=== PATIENT | male | born 1960 | race Caucasian/White ===

== ENCOUNTER 2017-01-11 04:55 | Inpatient (IN) | payer SELFPAY ==
[2017-01-11] VITALS (9 sets, daily range): BP systolic 114–190; BP diastolic 54–85
[~2017-01-11] VITALS: Ht 170.2 cm; Wt 96.6 kg
--- NOTE | ~2017-01-11 | PR ---
[place], [place] PROGRESS NOTE NAME: BELA JENSEN [facility] #: [id number] UNIT #: [id number] ROOM: 428 DOCTOR: BRUCE JOSEPH MD BIRTHDATE: [birth year] DOS: 01/12/2017 CARDIOLOGY PROGRESS NOTE SUBJECTIVE: The patient was seen at his bedside on January 12, 2017, for followup of his chest pain. He is a 57-year-old man with a history of an apparent nonischemic cardiomyopathy. He had a cardiac event in 1994 that resulted in placement of an ICD. He states that he did have a cardiac catheterization at that time, but was found to have no blockages. His ICD has been changed on several occasions and in March 2016, the device became infected. The generator and all of its wires were removed and he was treated with intravenous antibiotics. Since then, his status has been stable and he has not had any syncopal episodes. He was admitted to the [facility] in early August 2016 with atypical chest pain. He ruled out for myocardial infarction. A pharmacologic myocardial perfusion study showed normal left ventricular perfusion with an ejection fraction that was also normal. He has been managed medically since then. Since he has been in the hospital on this occasion, his pains have resolved. They were very atypical in their location and presentation. There was no associated acute ST change or elevation in cardiac biomarkers. PHYSICAL EXAMINATION: GENERAL: The patient is overweight white male who is awake, alert and oriented. VITAL SIGNS: Pulse is 60 and regular, blood pressure 133/74. He weighed 96.6 kilograms with a body mass index of 33.4. HEENT: Normocephalic, atraumatic. Extraocular muscles are intact. Sclerae are clear. Pupils are equal, round and react to light. The oral mucosa is moist. Tongue is midline. NECK: Supple. He has no jugular distention. Carotids are full. I heard no bruits. LUNGS: Respirations are unlabored. His chest is clear to auscultation and percussion. He has no presacral edema or chest wall tenderness. HEART: Has a regular rhythm. He has a fourth heart sound, but no third heart sound or murmur. ABDOMEN: Obese, but otherwise benign. EXTREMITIES: Showed no edema. IMPRESSION: 1. Atypical right-sided chest pain, which appears to be due to muscle tension. 2. History of dilated nonischemic cardiomyopathy. 3. Pharmacologic stress test on August 29, 2016, at [facility] showed no evidence for ischemia and normal left ventricular systolic function. 4. History of cigarette abuse. The patient stopped smoking 6 months ago. PLAN: We will review his echocardiogram when it is available. Assuming no surprises, he could be discharged after that. I thank the hospitalist group for asking our advice regarding his care. [place], [place] PROGRESS NOTE NAME: BELA JENSEN UNIT #: [id number] ROOM: [facility] DOCTOR: BRUCE JOSEPH MD BIRTHDATE: [birth year] BRUCE JOSEPH MD CM:PNTRANS [id number] BRUCE JOSEPH MD 01/13/17240 interface
--- NOTE | ~2017-01-11 | CON ---
[place], [place] REPORT OF CONSULTATION NAME: BELA JENSEN UNIT #: [id number] ROOM: 428 DOCTOR: BRUCE JOSEPH MD BIRTHDATE: [birth year] DOS: 01/11/2017 CARDIOLOGY CONSULTATION The patient was seen. REASON FOR CONSULTATION: Atypical chest pain. HISTORY OF PRESENT ILLNESS: The patient is a 57-year-old man who reportedly does have a history of a dilated nonischemic cardiomyopathy. All of his medical care was through the [facility] and Dr. Theron Matos. The patient states that in 1994, he did have a cardiac event, but cannot tell me much about it. He stated that he had a heart catheterization and was told that he had "small pulses." He did not require surgery for bypass or angioplasty, but an ICD was placed in 1994. The generator has been changed on a few occasions since then. 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 He states that the generator and all wires were removed and he was treated with intravenous antibiotics for quite some time. He states that they did place an implantable monitor, but he has not had any problems and in fact he was told that his heart strength had improved to normal. The patient states that a few months ago, he did have chest pain. Dr. Matos supervised a stress test. A Lexiscan study was done. I do not have the final report, but the patient was told that everything looked fine. He denies having any arrhythmias or syncopal episodes. The patient has had episodes of chest pain including the one that prompted his stress test in August. He states these are typically brought on by stress. Recently, he has been living with a friend here in [place]. His friend and his friend's got into an argument and this upset him greatly. He started having tightness and pain in the right side of his chest that would not go away on its own and therefore, he came to the Emergency Room for evaluation. His initial echocardiogram does show lateral T-wave inversions consistent with ischemia; however, serial cardiac enzymes have all been normal. PAST MEDICAL HISTORY: Includes, 1. Hypertension. 2. Cardiac event 1994, details not available. The patient states he had a heart catheterization and there were no blockages. He did not have a stent or bypass. 3. No history of diabetes or stroke. 4. History of cigarette abuse. The patient has been abstinent for the last 6 months. MEDICATIONS: Prior to admission, acetaminophen p.r.n., Tegretol 200 mg t.i.d., gabapentin 300 mg b.i.d., Keppra 1000 mg b.i.d., omeprazole 20 mg daily, potassium 20 mEq b.i.d., Topamax 50 mg b.i.d., and trazodone 150 mg h.s. ALLERGIES: The patient states he has no known drug allergies. [place], [place] REPORT OF CONSULTATION NAME: BELA JENSEN UNIT #: [id number] ROOM: 428 DOCTOR: BRUCE JOSEPH MD BIRTHDATE: [birth year] REVIEW OF SYSTEMS: The patient denies diplopia or loss of vision. He denies lightheadedness or syncope. He denies fevers, chills, sweats or recent weight change. He denies orthopnea or PND. He denies palpitations or lightheadedness. He denies nausea or vomiting. He denies hemoptysis or hematemesis. He denies change in his stools and denies bleeding from any site. He denies any recent fevers, polydipsia, polyuria or heat or cold intolerance. He denies any peripheral edema. The remainder of the review of systems is negative except as noted above. FAMILY HISTORY: Negative for early coronary artery disease. SOCIAL HISTORY: The patient lives alone. Currently, he is living with friends. He was a smoker, but quit 6 months ago. He almost never consumes any alcohol. PHYSICAL EXAMINATION: GENERAL: He is a well-nourished white male who is awake, alert and oriented. VITAL SIGNS: Pulse is 80 and regular, blood pressure is 128/78. He weighs 96.6 kg and has a body mass index of 33.4. HEENT: Normocephalic, atraumatic. Extraocular muscles are intact. Sclerae are clear. Pupils are equal, round and reactive to light. The oral mucosa is moist. Tongue is midline. NECK: Supple. He has no jugular distention. Carotids are full. I heard no bruits. He had no neck or supraclavicular masses. No thyromegaly. LUNGS: Respirations are unlabored. His chest is clear to auscultation and percussion. He had no presacral edema. I could not reproduce his pain by palpation of his chest, although he stated that his right chest was slightly sore. CARDIOVASCULAR: His heart had a regular rhythm without murmurs or rubs. He has a soft S4 gallop, but no S3. The PMI is not displaced. There is no precordial heave, lift or thrill. ABDOMEN: Soft and normally active without masses, organomegaly or bruits. EXTREMITIES: Showed no edema. Peripheral pulses are easily palpated in the feet bilaterally. LABORATORY DATA: I reviewed his electrocardiogram. It showed sinus rhythm with nonspecific ST changes and anterolateral T-wave inversions. Compared to a previous electrocardiogram dated 08/29/2016, there has been no substantial change. IMPRESSION: 1. Atypical right-sided chest pain, which seems to be brought on by stress and relieved by rest. 2. History of dilated nonischemic cardiomyopathy. The patient has been told that he has "no blockages." Details of his history are not yet available to review, however. 3. History of cigarette abuse. The patient stopped smoking 6 months ago. 4. No history of myocardial infarction or stroke. PLAN: We will try to get further records of his history from Dr. Matos. I will [place], [place] REPORT OF CONSULTATION NAME: BELA JENSEN UNIT #: [id number] ROOM: [facility] DOCTOR: BRUCE JOSEPH MD BIRTHDATE: [birth year] be requesting an echocardiogram to reassess left ventricular function. If he remains free of any EKG changes or elevation in troponin and especially if we get word that his recent stress test was indeed negative, then no further cardiac workup would be required at this time. We will make further recommendations after we reviewed his old records and his echo. We thank the hospitalist for asking our advice regarding his care. BRUCE JOSEPH MD CM:CONSTR:REPORT OF CONSULTATION 1539 01/12/17 0559 interface
[2017-01-11] MEDS ORDERED: OMEPRAZOLE D/R20 MG PO (05:05)
[2017-01-11] MEDS ORDERED: TRAZODONE50 MG PO (05:05)
[2017-01-11] MEDS ORDERED: TEGRETOL200 MG PO (05:06)
[2017-01-11] MEDS ORDERED: HYDR25T PO (05:06)
[2017-01-11] MEDS ORDERED: K-Lor 20MEQ20 MEQ PO (05:06)
[2017-01-11] MEDS ORDERED: KEPPRA1000 MG PO (05:07)
[2017-01-11] MEDS ORDERED: TOPAMAX50 MG PO (05:07)
[2017-01-11 05:19] LABS: BASO % 0.4 % (0.0-1.0); EOS # 0.1 10*3/uL (0.0-0.4); EOS % 1.6 % (1.0-4.0); HEMATOCRIT 40.8 % (42.0-52.0); HEMOGLOBIN 13.9 g/dl (14.0-18.0); IG # 0.1 10*3/uL (0.0-0.1); LYMPH # 1.6 10*3/uL (1.3-4.4); LYMPH % 17.6 % (27.0-41.0); MEAN CELL VOLUME 93.8 fl (80.0-94.0); MEAN CORPUSCULAR HGB CONC 34.1 g/dl (33.0-37.0); MEAN PLATELET VOLUME 9.7 fl (9.6-12.3); MONO # 1.2 10*3/uL (0.1-1.0); MONO % 13.3 % (3.0-9.0); NEUT # 5.9 10*3/uL (2.3-7.9); PLATELET COUNT AUTOMATED 221 10*3/uL (130-400); RED BLOOD COUNT 4.35 10*6/uL (4.50-5.90); RED CELL DISTRI WIDTH 12.9 % (0-14.5)
[2017-01-11 05:29] LABS: INTERNATIONAL NORM RATIO 0.9 (2.0-3.5)
[2017-01-11 05:35] LABS: ALBUMIN 3.7 gm/dl (3.1-4.5); ALKALINE PHOSPHATASE 123 U/L (45-117); BILIRUBIN, TOTAL 0.6 mg/dl (0.2-1.0); BUN 9 mg/dl (7-24); CARBON DIOXIDE 29 mmol/L (21-32); CHLORIDE 108 mmol/L (98-107); EST GLOM FILT AFRICAN AMERICAN > 60 ml/min; GLUCOSE 112 mg/dL (65-99); MAGNESIUM 2.4 mg/dL (1.5-2.1); POTASSIUM 3.1 mmol/L (3.5-5.1); SGOT/AST 14 IU/L (3-35); SGPT/ALT 20 U/L (12-78); SODIUM 143 mmol/L (136-145); TOTAL PROTEIN 7.6 gm/dL (6.4-8.2)
[2017-01-11 05:40] LABS: TROPONIN I < 0.015 ng/ml (<0.045)
[2017-01-11] MEDS ORDERED: TRAZODONE150 MG PO (08:40)
[2017-01-11] MEDS ORDERED: POTASSIUM CHLO20 ME3 PO (08:41)
[2017-01-11] MEDS ORDERED: NEURONTIN300 MG PO (08:42)
[2017-01-11] MEDS ORDERED: ACETAMINOPHEN500 M5 PO (08:43)
[2017-01-12] VITALS: BP 137/77
[2017-01-12 07:15] LABS: BASO # 0.1 10*3/uL (0.0-0.1); BASO % 0.8 % (0.0-1.0); EOS # 0.2 10*3/uL (0.0-0.4); EOS % 2.5 % (1.0-4.0); HEMATOCRIT 39.6 % (42.0-52.0); HEMOGLOBIN 13.6 g/dl (14.0-18.0); IG # 0.1 10*3/uL (0.0-0.1); LYMPH # 1.8 10*3/uL (1.3-4.4); LYMPH % 24.9 % (27.0-41.0); MEAN CORPUSCULAR HGB 32.6 pg (27.0-31.0); MEAN CORPUSCULAR HGB CONC 34.3 g/dl (33.0-37.0); MEAN PLATELET VOLUME 9.6 fl (9.6-12.3); MONO # 0.9 10*3/uL (0.1-1.0); MONO % 11.7 % (3.0-9.0); NEUT # 4.2 10*3/uL (2.3-7.9); NEUT % 58.2 % (47.0-73.0); PLATELET COUNT AUTOMATED 206 10*3/uL (130-400); RED BLOOD COUNT 4.17 10*6/uL (4.50-5.90); RED CELL DISTRI WIDTH 12.9 % (0-14.5); WHITE BLOOD COUNT 7.2 10*3/uL (4.8-10.8)
[2017-01-12 07:44] LABS: ALBUMIN 3.3 gm/dl (3.1-4.5); ALKALINE PHOSPHATASE 112 U/L (45-117); BILIRUBIN, TOTAL 0.5 mg/dl (0.2-1.0); BUN 11 mg/dl (7-24); CARBON DIOXIDE 30 mmol/L (21-32); CHLORIDE 103 mmol/L (98-107); CHOLESTEROL 215 mg/dL (<200); EST GLOM FILT AFRICAN AMERICAN > 60 ml/min; GLUCOSE 98 mg/dL (65-99); HDL CHOLESTEROL 68 mg/dl (40-60); LDL CHOLESTEROL 116 mg/dL (9-159); POTASSIUM 3.3 mmol/L (3.5-5.1); SGOT/AST 9 IU/L (3-35); SGPT/ALT 18 U/L (12-78); SODIUM 140 mmol/L (136-145); TOTAL PROTEIN 7.1 gm/dL (6.4-8.2); TRIGLYCERIDES 153 mg/dl (<150); VLDL CHOLESTEROL 31 mg/dL (6-40)
[2017-01-12 08:00] VITALS: BP 133/74
[2017-01-12 08:20] LABS: HEMOGLOBIN A1c 5.6 % (4.8-5.6)
[2017-01-12 09:19] LABS: FOLIC ACID 6.59 ng/mL (>5.38); VITAMIN D, 25-HYDROXY 8.7 ng/mL (30-100)
[2017-01-12 11:58] VITALS: BP 133/74
[2017-01-12] MEDS ORDERED: ASPIRIN ADULT L81 M2 PO (14:07)
[2017-01-12] MEDS ORDERED: HYDR25T PO (14:07)
[2017-01-12] MEDS ORDERED: VITAMIN D50000 I3 PO (14:07)
== END 2017-01-12 16:37 | disposition home or self-care (01) | DRG 313 ==
LOC: ED 04:55 → EDHOLD 06:19 → 4E 07:18
PROVIDERS: Emergency Medicine Emergency Medical Services; Internal Medicine Hospice and Palliative Medicine
DX: R07.89 Other chest pain (principal); I42.9 Cardiomyopathy, unspecified; K21.9 Gastro-esophageal reflux disease without esophagitis; E87.6 Hypokalemia; I10 Essential (primary) hypertension; G62.9 Polyneuropathy, unspecified; G40.A09 Absence epileptic syndrome, not intractable, without status epilepticus; E66.9 Obesity, unspecified; G47.00 Insomnia, unspecified; D64.9 Anemia, unspecified; E78.5 Hyperlipidemia, unspecified; G40.909 Epilepsy, unspecified, not intractable, without status epilepticus; Z87.891 Personal history of nicotine dependence; Z82.49 Family history of ischemic heart disease and other diseases of the circulatory system; Z83.3 Family history of diabetes mellitus; Z79.1 Long term (current) use of non-steroidal anti-inflammatories (NSAID); Z79.899 Other long term (current) drug therapy; Z68.33 Body mass index [BMI] 33.0-33.9, adult

== ENCOUNTER 2017-05-16 21:56 | Inpatient (IN) | payer SELFPAY ==
[~2017-05-16] VITALS: Ht 170.1 cm; Wt 102.7 kg
[~2017-05-16 21:56] MED LIST: ACETAMINOPHEN500 M5 PO; ASPIRIN ADULT L81 M2 PO; HYDR25T PO; K-Lor 20MEQ20 MEQ PO; KEPPRA1000 MG PO; NEURONTIN300 MG PO; OMEPRAZOLE D/R20 MG PO; POTASSIUM CHLO20 ME3 PO; TEGRETOL200 MG PO; TOPAMAX50 MG PO; TRAZODONE150 MG PO; TRAZODONE50 MG PO; VITAMIN D50000 I3 PO
[2017-05-16 22:00] VITALS: BP 172/96
[2017-05-16 22:28] LABS: HEMATOCRIT 40.1 % (42.0-52.0); HEMOGLOBIN 13.7 g/dl (14.0-18.0); MEAN CELL VOLUME 93.7 fl (80.0-94.0); MEAN CORPUSCULAR HGB CONC 34.2 g/dl (33.0-37.0); MEAN PLATELET VOLUME 9.9 fl (9.6-12.3); PLATELET COUNT AUTOMATED 247 10*3/uL (130-400); RED BLOOD COUNT 4.28 10*6/uL (4.50-5.90); WHITE BLOOD COUNT 11.7 10*3/uL (4.8-10.8)
[2017-05-16 22:38] LABS: ACT PARTIAL THROMBO TIME 25.5 SECONDS (20.8-31.5); INTERNATIONAL NORM RATIO 0.9 (2.0-3.5)
[2017-05-16 22:44] LABS: ALBUMIN 3.3 gm/dl (3.1-4.5); ALKALINE PHOSPHATASE 116 U/L (45-117); BUN 15 mg/dl (7-24); CHLORIDE 106 mmol/L (98-107); MAGNESIUM 2.3 mg/dL (1.5-2.1); POTASSIUM 3.7 mmol/L (3.5-5.1); SGOT/AST 15 IU/L (3-35); SGPT/ALT 22 U/L (12-78); SODIUM 137 mmol/L (136-145); TOTAL PROTEIN 7.5 gm/dL (6.4-8.2)
[2017-05-16 22:45] LABS: TROPONIN I < 0.015 ng/ml (<0.045)
[2017-05-16 22:48] LABS: ATYPICAL LYMPHS 1 % (0-0); BASOPHILS 1 % (0-1); PLATELET SUFFICIENCY NORMAL (NORMAL); TOTAL CELLS COUNTED 100 #CELLS
[2017-05-17] VITALS (7 sets, daily range): BP systolic 138–191; BP diastolic 72–92
--- NOTE | 2017-05-17 01:15 | NUR ---
A 57YR OLD MALE, admitted to 5E, under the services of MONISHA Thomas DO with a diagnosis of CHEST PAIN. Chief complaint is HEADACHE,CHEST DISCOMFORT. Patient arrived via stretcher from ER. Monitor applied. Initial assessment completed. Vital signs taken and recorded. MONISHA THOMAS DO notified of admission to the unit. Orders received. See assessment for past medical history, medications and allergies. Patient and/or family oriented to unit 5E. visitation policy reviewed. Clothing/patient valuable form completed. NOE OWENS
--- NOTE | 2017-05-17 01:40 | NUR ---
Medication Reconciliation updated and verified with patient and his bottles of medication from home. Home medications counted and sent to pharmacy.
[2017-05-17 04:27] LABS: BASO # 0.1 10*3/uL (0.0-0.1); BASO % 0.6 % (0.0-1.0); EOS # 0.2 10*3/uL (0.0-0.4); EOS % 2.4 % (1.0-4.0); HEMATOCRIT 37.1 % (42.0-52.0); HEMOGLOBIN 12.7 g/dl (14.0-18.0); LYMPH # 2.3 10*3/uL (1.3-4.4); LYMPH % 24.2 % (27.0-41.0); MEAN CELL VOLUME 95.9 fl (80.0-94.0); MEAN CORPUSCULAR HGB 32.8 pg (27.0-31.0); MEAN CORPUSCULAR HGB CONC 34.2 g/dl (33.0-37.0); MEAN PLATELET VOLUME 9.9 fl (9.6-12.3); MONO # 1.1 10*3/uL (0.1-1.0); MONO % 11.7 % (3.0-9.0); NEUT # 5.6 10*3/uL (2.3-7.9); NEUT % 59.7 % (47.0-73.0); PLATELET COUNT AUTOMATED 208 10*3/uL (130-400); RED BLOOD COUNT 3.87 10*6/uL (4.50-5.90); RED CELL DISTRI WIDTH 13.1 % (0-14.5); WHITE BLOOD COUNT 9.4 10*3/uL (4.8-10.8)
[2017-05-17 04:43] LABS: ALBUMIN 2.8 gm/dl (3.1-4.5); BUN 17 mg/dl (7-24); CHLORIDE 107 mmol/L (98-107); CHOLESTEROL 189 mg/dL (<200); CREATININE 0.81 mg/dL (0.70-1.30); MAGNESIUM 2.2 mg/dL (1.5-2.1); PHOSPHOROUS 2.5 mg/dL (2.5-4.9); POTASSIUM 3.5 mmol/L (3.5-5.1); SGOT/AST 11 IU/L (3-35); SGPT/ALT 18 U/L (12-78); SODIUM 140 mmol/L (136-145); TOTAL PROTEIN 6.6 gm/dL (6.4-8.2); TRIGLYCERIDES 77 mg/dl (<150); VLDL CHOLESTEROL 15 mg/dL (6-40)
[2017-05-17 04:49] LABS: ALKALINE PHOSPHATASE 107 U/L (45-117); HDL CHOLESTEROL 69 mg/dl (40-60); LDL CHOLESTEROL 105 mg/dL (9-159); THYROID STIM HORMONE (HS) 0.671 uIU/ml (0.358-4.75)
[2017-05-17 07:28] LABS: VITAMIN D, 25-HYDROXY 16.5 ng/mL (30-100)
--- NOTE | 2017-05-17 08:00 | NUR ---
PATIENT RESTING IN BED. ADMITS TO A HEADACHE RATING A 10/10 ON PAINSCALE. NORCO 5/325 GIVEN PER PATIENT REQUEST. BED IN LOW POSITION. CALL LIGHT IS WITHIN REACH.
--- NOTE | 2017-05-17 09:29 | NUR ---
PATIENT STATES THAT HEADACHE IS NOW AN 8/10 ON PAINSCALE.
--- NOTE | 2017-05-17 11:34 | NUR ---
MORPHINE 2MG GIVEN FOR HEADACHE RATING A 10/10 ON PAINSCALE.
--- NOTE | 2017-05-17 12:30 | NUR ---
NO COMPLAINTS OF PAIN. MORPHINE EFFECTIVE PER PATIENT.
--- NOTE | 2017-05-17 13:41 | NUR ---
PATIENT COMPLAINING OF NAUSEA. ZOFRAN 4MG IV GIVEN.
--- NOTE | 2017-05-17 14:16 | NUR ---
PATIENT COMPLAINING OF A HEADACHE RATING AN 8/10 ON PAINSCALE. NORCO 5/325 ONE TABLET AND TORADOL 30MG IV GIVEN. ZOFRAN EFFECTIVE PER PATIENT.
--- NOTE | 2017-05-17 16:03 | NUR ---
MORPHINE 2MG GIVEN PER PATIENT REQUEST FOR ABDOMINAL PAIN.
--- NOTE | 2017-05-17 17:00 | NUR ---
MORPHINE EFFECTIVE PER PATIENT
--- NOTE | 2017-05-17 19:46 | NUR ---
PATIENT MEDICATED WITH PRN MORPHINE ORDERED FOR C/O GENERALIZED BODY PAIN AND DISCOMFORT. WILL FOLLOW UP EFFECTIVENESS.
--- NOTE | 2017-05-17 20:00 | NUR ---
PATIENT RESTING IN BED. ONLY COMPLAINT AT THIS TIME IS BILAT ARM NUMBNESS/TING. PATIENT IS AMBULATORY. COOPERATIVE WITH CARE. NO SXS OF DISTRESS. RESPIRATIONS EASY/REG. CALL LIGHT IS IN REACH.
--- NOTE | 2017-05-17 21:52 | NUR ---
PATIENT MEDICATED WITH PRN NORCO ORDERED FOR C/O BILAT ARM PAIN AND LEFT SHOULDER PAIN RATED A 9. WILL MONITOR EFFECTIVENESS.
--- NOTE | 2017-05-17 23:00 | NUR ---
PATIENT STATES EARLIER NORCO WAS EFFECTIVE IN DECREASING PAIN.
[2017-05-18] VITALS: BP 166/86
[2017-05-18 08:00] VITALS: BP 150/82
--- NOTE | 2017-05-18 11:15 | NUR ---
INFORMED CONSENT OBTAINED FOR LEXISCAN NUCLEAR STRESS TEST WITH DR. BRADSHAW. RESTING EKG NSR WITH A RESTING HR OF 62 WITH BP OF 142/80. LUNGS CLEAR WITH DECREASED BS IN BASES WITH SPO2 OF 97%. PT COMPLETED A 1:00 LEXISCAN PROTOCOL RECEIVING LEXISCAN 0.4 MG IV OVER 10 SECONDS. HAD NO EKG CHANGES. DID C/O OF CHEST DISCOMFORT THAT WAS RELIEVED IN RECOVERY. HAD A PEAK HR OF 97 WITH BP OF 134/74. LAST RECOVERY HR OF 91 WITH BP OF 142/80. AWAITING SCANNING IN STABLE CONDITION. MAINTAINED CONTACT ISOLATION.
[2017-05-18 12:00] VITALS: BP 148/62
[2017-05-18 17:04] VITALS: BP 131/73
--- NOTE | 2017-05-18 18:42 | NUR ---
AFTER PATIENT WAS UNABLE TO GET A RIDE [employer] WAS TOLD AND A CAB WAS CALLED FOR HIM. PT AMBULATED OFF FLOOR TO LOBBY. FISHER SWORDFISH AND HEPLOCK DISCONTINUED. DISCHARGE INSTRUCTIONS REVIEWED.
== END 2017-05-18 18:42 | disposition home or self-care (01) | DRG 205 ==
LOC: ED 21:56 → 5E 05-17 00:22 → EDHOLD 05-17 00:22 → 5E 05-17 00:27
PROVIDERS: Emergency Medicine Emergency Medical Services; Hospitalist; ADMIT Internal Medicine
PROC: 3E073KZ Introduction of Other Diagnostic Substance into Coronary Artery, Percutaneous Approach (ICD-10-PCS; principal; 2017-05-18)
PROC: 4A02XM4 Measurement of Cardiac Total Activity, External Approach (ICD-10-PCS; principal; 2017-05-18)
DX: M94.0 Chondrocostal junction syndrome [Tietze] (principal); E43 Unspecified severe protein-calorie malnutrition; E83.41 Hypermagnesemia; B97.89 Other viral agents as the cause of diseases classified elsewhere; E55.9 Vitamin D deficiency, unspecified; E53.8 Deficiency of other specified B group vitamins; G43.109 Migraine with aura, not intractable, without status migrainosus; G40.A09 Absence epileptic syndrome, not intractable, without status epilepticus; J06.9 Acute upper respiratory infection, unspecified; I10 Essential (primary) hypertension; G62.9 Polyneuropathy, unspecified; K21.9 Gastro-esophageal reflux disease without esophagitis; E66.9 Obesity, unspecified; D64.9 Anemia, unspecified; E78.5 Hyperlipidemia, unspecified; F17.210 Nicotine dependence, cigarettes, uncomplicated; Z71.6 Tobacco abuse counseling; Z79.899 Other long term (current) drug therapy; Z95.810 Presence of automatic (implantable) cardiac defibrillator; Z83.3 Family history of diabetes mellitus; Z82.49 Family history of ischemic heart disease and other diseases of the circulatory system; Z80.42 Family history of malignant neoplasm of prostate; Z79.82 Long term (current) use of aspirin; Z68.34 Body mass index [BMI] 34.0-34.9, adult

== ENCOUNTER 2017-05-22 21:27 | Emergency (ER) | payer SELFPAY ==
[~2017-05-22] VITALS: Ht 170.1 cm; Wt 97.5 kg
[2017-05-22 21:59] LABS: BASO # 0.1 10*3/uL (0.0-0.1); BASO % 0.7 % (0.0-1.0); EOS # 0.2 10*3/uL (0.0-0.4); EOS % 2.2 % (1.0-4.0); LYMPH # 2.4 10*3/uL (1.3-4.4); LYMPH % 24.3 % (27.0-41.0); MEAN CORPUSCULAR HGB 32.1 pg (27.0-31.0); MEAN CORPUSCULAR HGB CONC 34.1 g/dl (33.0-37.0); MEAN PLATELET VOLUME 9.8 fl (9.6-12.3); MONO # 1.2 10*3/uL (0.1-1.0); NEUT # 5.8 10*3/uL (2.3-7.9); PLATELET COUNT AUTOMATED 244 10*3/uL (130-400); RED BLOOD COUNT 4.36 10*6/uL (4.50-5.90); RED CELL DISTRI WIDTH 12.8 % (0-14.5); WHITE BLOOD COUNT 9.9 10*3/uL (4.8-10.8)
[2017-05-22 22:15] LABS: ALBUMIN 3.3 gm/dl (3.1-4.5); ALKALINE PHOSPHATASE 128 U/L (45-117); BUN 12 mg/dl (7-24); CHLORIDE 103 mmol/L (98-107); CREATININE 1.01 mg/dL (0.70-1.30); POTASSIUM 3.3 mmol/L (3.5-5.1); SGOT/AST 11 IU/L (3-35); SGPT/ALT 24 U/L (12-78); SODIUM 138 mmol/L (136-145); TOTAL PROTEIN 7.8 gm/dL (6.4-8.2)
[2017-05-22 22:17] LABS: TROPONIN I < 0.015 ng/ml (<0.045)
== END 2017-05-22 23:19 | disposition home or self-care (01) ==
LOC: ED 21:27
PROVIDERS: Emergency Medicine
DX: J06.9 Acute upper respiratory infection, unspecified (principal); K21.9 Gastro-esophageal reflux disease without esophagitis; E66.9 Obesity, unspecified; F17.200 Nicotine dependence, unspecified, uncomplicated; I10 Essential (primary) hypertension; G62.9 Polyneuropathy, unspecified; E78.5 Hyperlipidemia, unspecified; G43.809 Other migraine, not intractable, without status migrainosus; Z79.899 Other long term (current) drug therapy; Z98.890 Other specified postprocedural states; Z90.89 Acquired absence of other organs; Z68.34 Body mass index [BMI] 34.0-34.9, adult; Z79.82 Long term (current) use of aspirin

== ENCOUNTER 2017-08-17 07:44 | Inpatient (IN) | payer MEDICARE ==
[2017-08-17] VITALS (7 sets, daily range): BP systolic 133–189; BP diastolic 57–88
[~2017-08-17] VITALS: Ht 170.1 cm; Wt 98.7 kg
--- NOTE | ~2017-08-17 | EKG ---
[place], [place] ELECTROCARDIOGRAM REPORT NAME: BELA JENSEN UNIT #: [id number] ROOM: [facility] DOCTOR: SRAVANTHI SINGH,HERMES BIRTHDATE: [birth year] DOS: 08/17/2017 TIME: 1232 hours. IMPRESSION: 1. Sinus rhythm. 2. Anterolateral ST-T changes, suggestive of ischemia versus recent myocardial infarction. HERMES FISHMAN MD CM:EKGRPT:ELECTROCARDIOGRAM REPORT 1412 1750 HERMES FISHMAN MD
--- NOTE | ~2017-08-17 | EKG ---
[place], [place] ELECTROCARDIOGRAM REPORT NAME: BELA JENSEN UNIT #: [id number] ROOM: [facility] DOCTOR: SRAVANTHI SINGH,HERMES BIRTHDATE: [birth year] DOS: 08/17/2017 TIME: 0747 hours IMPRESSION: 1. Sinus rhythm. 2. Anterolateral ST-T changes, suggestive of prior myocardial infarction versus ischemia. 3. Normal QT interval. HERMES FISHMAN MD CM:EKGRPT:ELECTROCARDIOGRAM REPORT 1413 1751 HERMES FISHMAN MD
--- NOTE | ~2017-08-17 | EKG ---
[place], [place] ELECTROCARDIOGRAM REPORT NAME: BELA JENSEN UNIT #: [id number] ROOM: [facility] DOCTOR: SRAVANTHI SINGH,HERMES BIRTHDATE: [birth year] DOS: 08/17/2017 TIME: 1411 hours. IMPRESSION: 1. Sinus rhythm. 2. Anterolateral ST-T changes, consider ischemia. 3. Normal QT interval. HERMES FISHMAN MD CM:EKGRPT:ELECTROCARDIOGRAM REPORT 1411 1749 HERMES FISHMAN MD
[2017-08-17 08:33] LABS: BASO # 0.1 10*3/uL (0.0-0.1); EOS # 0.4 10*3/uL (0.0-0.4); EOS % 4.9 % (1.0-4.0); HEMATOCRIT 41.3 % (42.0-52.0); HEMOGLOBIN 14.2 g/dl (14.0-18.0); LYMPH % 11.4 % (27.0-41.0); MEAN CELL VOLUME 91.2 fl (80.0-94.0); MEAN CORPUSCULAR HGB 31.3 pg (27.0-31.0); MEAN CORPUSCULAR HGB CONC 34.4 g/dl (33.0-37.0); MEAN PLATELET VOLUME 9.7 fl (9.6-12.3); MONO # 1.4 10*3/uL (0.1-1.0); MONO % 16.5 % (3.0-9.0); NEUT # 5.3 10*3/uL (2.3-7.9); NEUT % 64.4 % (47.0-73.0); PLATELET COUNT AUTOMATED 190 10*3/uL (130-400); RED BLOOD COUNT 4.53 10*6/uL (4.50-5.90); WHITE BLOOD COUNT 8.3 10*3/uL (4.8-10.8)
[2017-08-17 08:42] LABS: ACT PARTIAL THROMBO TIME 26.8 SECONDS (20.8-31.5); INTERNATIONAL NORM RATIO 0.9 (2.0-3.5)
[2017-08-17 08:49] LABS: ALBUMIN 3.3 gm/dl (3.1-4.5); ALKALINE PHOSPHATASE 117 U/L (45-117); BUN 12 mg/dl (7-24); CHLORIDE 109 mmol/L (98-107); CREATININE 0.89 mg/dL (0.70-1.30); LIPASE 158 U/L (73-393); POTASSIUM 3.6 mmol/L (3.5-5.1); SGOT/AST 19 IU/L (3-35); SGPT/ALT 27 U/L (12-78); SODIUM 140 mmol/L (136-145); TOTAL PROTEIN 7.4 gm/dL (6.4-8.2); TROPONIN I < 0.015 ng/ml (<0.045)
[2017-08-18] VITALS: BP 154/79
[2017-08-18 06:17] LABS: BASO % 0.2 % (0.0-1.0); HEMATOCRIT 39.8 % (42.0-52.0); HEMOGLOBIN 13.4 g/dl (14.0-18.0); LYMPH # 0.8 10*3/uL (1.3-4.4); MEAN CORPUSCULAR HGB 31.8 pg (27.0-31.0); MEAN CORPUSCULAR HGB CONC 33.7 g/dl (33.0-37.0); MEAN PLATELET VOLUME 10.4 fl (9.6-12.3); MONO # 0.6 10*3/uL (0.1-1.0); NEUT # 4.6 10*3/uL (2.3-7.9); PLATELET COUNT AUTOMATED 204 10*3/uL (130-400); RED BLOOD COUNT 4.22 10*6/uL (4.50-5.90); WHITE BLOOD COUNT 6.1 10*3/uL (4.8-10.8)
[2017-08-18 06:40] LABS: MEAN CELL VOLUME 94.3 fl (80.0-94.0)
[2017-08-18 06:48] LABS: CHLORIDE 108 mmol/L (98-107); SODIUM 140 mmol/L (136-145)
[2017-08-18 07:07] LABS: BUN 12 mg/dl (7-24); CHOLESTEROL 187 mg/dL (<200); HDL CHOLESTEROL 68 mg/dl (40-60); LDL CHOLESTEROL 108 mg/dL (9-159); PHOSPHOROUS 1.9 mg/dL (2.5-4.9); THYROID STIM HORMONE (HS) 0.429 uIU/ml (0.358-4.75); TRIGLYCERIDES 53 mg/dl (<150); VLDL CHOLESTEROL 11 mg/dL (6-40)
[2017-08-18 07:44] LABS: VITAMIN D, 25-HYDROXY 18.4 ng/mL (30-100)
[2017-08-18 08:00] VITALS: BP 178/89
[2017-08-18] MEDS ORDERED: MEDROL2 M1 PO (09:38)
[2017-08-18 12:00] VITALS: BP 154/68
[2017-08-18 15:30] LABS: BILIRUBIN NEGATIVE (NEGATIVE); BLOOD NEGATIVE (NEGATIVE); CLARITY CLEAR (CLEAR); COLOR YELLOW (YELLOW); GLUCOSE NEGATIVE (NEGATIVE); KETONE NEGATIVE (NEGATIVE); LEUKO ESTERASE NEGATIVE (NEGATIVE); NITRITE NEGATIVE (NEGATIVE); SPECIFIC GRAVITY <= 1.005 (1.005-1.030); UROBILINOGEN 0.2 E.U./dl (0.2-1.0)
[2017-08-18 15:36] LABS: EPITHELIAL CELLS 0-2; RBC 0-2 rbc/hpf (0-2)
[2017-08-18 15:37] LABS: BACTERIA 1+
[2017-08-18 16:00] VITALS: BP 158/65
[2017-08-18 20:00] VITALS: BP 145/67
[2017-08-19] VITALS: BP 138/78
[2017-08-19 06:55] LABS: BASO % 0.5 % (0.0-1.0); EOS # 0.1 10*3/uL (0.0-0.4); EOS % 1.4 % (1.0-4.0); HEMATOCRIT 38.6 % (42.0-52.0); HEMOGLOBIN 13.1 g/dl (14.0-18.0); LYMPH # 1.6 10*3/uL (1.3-4.4); LYMPH % 24.5 % (27.0-41.0); MEAN CELL VOLUME 93.5 fl (80.0-94.0); MEAN CORPUSCULAR HGB 31.7 pg (27.0-31.0); MEAN CORPUSCULAR HGB CONC 33.9 g/dl (33.0-37.0); MEAN PLATELET VOLUME 10.1 fl (9.6-12.3); MONO # 0.9 10*3/uL (0.1-1.0); MONO % 13.7 % (3.0-9.0); NEUT # 3.9 10*3/uL (2.3-7.9); NEUT % 58.2 % (47.0-73.0); PLATELET COUNT AUTOMATED 195 10*3/uL (130-400); RED BLOOD COUNT 4.13 10*6/uL (4.50-5.90); RED CELL DISTRI WIDTH 13.1 % (0-14.5); WHITE BLOOD COUNT 6.7 10*3/uL (4.8-10.8)
[2017-08-19 07:01] LABS: BUN 15 mg/dl (7-24); CHLORIDE 106 mmol/L (98-107); CREATININE 0.89 mg/dL (0.70-1.30); PHOSPHOROUS 2.1 mg/dL (2.5-4.9); POTASSIUM 3.7 mmol/L (3.5-5.1); SODIUM 140 mmol/L (136-145)
[2017-08-19 08:00] VITALS: BP 121/66
[2017-08-19 12:00] VITALS: BP 140/70
[2017-08-19] MEDS ORDERED: MUCINEX1200 M1 PO (14:42)
[2017-08-19] MEDS ORDERED: CEPACOL SORE T1 EACH MM (14:42)
[2017-08-19] MEDS ORDERED: VITAMIN D-32000 UNIT PO (14:42)
[2017-08-19] MEDS ORDERED: B-12500 MC1 PO (14:42)
[2017-08-19] MEDS ORDERED: LEVAQUIN500 M2 PO (14:42)
== END 2017-08-19 16:31 | disposition home or self-care (01) | DRG 391 ==
LOC: ED 07:44 → 5E 09:35
PROVIDERS: Emergency Medicine; Internal Medicine Nephrology
DX: K21.9 Gastro-esophageal reflux disease without esophagitis (principal); J18.9 Pneumonia, unspecified organism; D72.1 Eosinophilia; G62.9 Polyneuropathy, unspecified; E87.8 Other disorders of electrolyte and fluid balance, not elsewhere classified; R07.89 Other chest pain; D72.810 Lymphocytopenia; R73.9 Hyperglycemia, unspecified; I10 Essential (primary) hypertension; G47.00 Insomnia, unspecified; G43.809 Other migraine, not intractable, without status migrainosus; G40.A09 Absence epileptic syndrome, not intractable, without status epilepticus; E78.5 Hyperlipidemia, unspecified; E53.8 Deficiency of other specified B group vitamins; E55.9 Vitamin D deficiency, unspecified; E66.9 Obesity, unspecified; Z68.34 Body mass index [BMI] 34.0-34.9, adult; Z90.49 Acquired absence of other specified parts of digestive tract; Z82.49 Family history of ischemic heart disease and other diseases of the circulatory system; Z83.3 Family history of diabetes mellitus; Z80.42 Family history of malignant neoplasm of prostate; Z86.14 Personal history of Methicillin resistant Staphylococcus aureus infection; Z79.899 Other long term (current) drug therapy; Z79.82 Long term (current) use of aspirin

== ENCOUNTER 2020-09-07 00:12 | Observation (INO) | payer MEDICARE ==
[2020-09-07] VITALS (14 sets, daily range): BP systolic 102–183; BP diastolic 45–82
[~2020-09-07] VITALS: Ht 177.8 cm; Wt 136.1 kg
[~2020-09-07 00:12] MED LIST changes: +B-12500 MC1 PO; +CEPACOL SORE T1 EACH MM; +LEVAQUIN500 M2 PO; +MEDROL2 M1 PO; +MUCINEX1200 M1 PO; +VITAMIN D-32000 UNIT PO
[2020-09-07 00:37] LABS: HEMATOCRIT 41.3 % (42.0-52.0); MEAN CELL VOLUME 90.4 fl (80.0-94.0); MEAN CORPUSCULAR HGB 30.2 pg (27.0-31.0); MEAN CORPUSCULAR HGB CONC 33.4 g/dl (33.0-37.0); PLATELET COUNT AUTOMATED 232 10*3/uL (130-400); RED BLOOD COUNT 4.57 10*6/uL (4.50-5.90); RED CELL DISTRI WIDTH 13.5 % (0-14.5); WHITE BLOOD COUNT 11.6 10*3/uL (4.8-10.8)
[2020-09-07 00:51] LABS: ACT PARTIAL THROMBO TIME 26.8 SECONDS (20.0-32.1); INTERNATIONAL NORM RATIO 0.9 (2.0-3.5)
[2020-09-07 00:55] LABS: PLATELET SUFFICIENCY NORMAL (NORMAL); TOTAL CELLS COUNTED 100 #CELLS
[2020-09-07 00:56] LABS: BURR CELLS FEW; OVALOCYTES FEW
[2020-09-07 01:16] LABS: ALBUMIN 3.3 gm/dl (3.1-4.5); ALKALINE PHOSPHATASE 97 U/L (45-117); BUN 19 mg/dl (7-24); CHLORIDE 106 mmol/L (98-107); CREATININE 1.04 mg/dL (0.70-1.30); POTASSIUM 4.1 mmol/L (3.5-5.1); SGOT/AST 22 IU/L (3-35); SGPT/ALT 31 U/L (12-78); SODIUM 138 mmol/L (136-145)
[2020-09-07 01:17] LABS: TROPONIN I 0.025 ng/ml (<0.045)
[2020-09-07 06:13] LABS: BASO # 0.1 10*3/uL (0.0-0.1); BASO % 0.7 % (0.0-1.0); EOS # 0.3 10*3/uL (0.0-0.4); HEMATOCRIT 41.6 % (42.0-52.0); LYMPH # 1.9 10*3/uL (1.3-4.4); LYMPH % 19.2 % (27.0-41.0); MEAN CELL VOLUME 89.7 fl (80.0-94.0); MEAN CORPUSCULAR HGB 29.7 pg (27.0-31.0); MEAN CORPUSCULAR HGB CONC 33.2 g/dl (33.0-37.0); MEAN PLATELET VOLUME 10.3 fl (9.6-12.3); MONO # 1.3 10*3/uL (0.1-1.0); MONO % 13.3 % (3.0-9.0); NEUT # 6.1 10*3/uL (2.3-7.9); NEUT % 62.9 % (47.0-73.0); PLATELET COUNT AUTOMATED 205 10*3/uL (130-400); RED BLOOD COUNT 4.64 10*6/uL (4.50-5.90); RED CELL DISTRI WIDTH 13.4 % (0-14.5); WHITE BLOOD COUNT 9.7 10*3/uL (4.8-10.8)
[2020-09-07 06:42] LABS: ALBUMIN 3.2 gm/dl (3.1-4.5); ALKALINE PHOSPHATASE 93 U/L (45-117); BUN 20 mg/dl (7-24); CHLORIDE 108 mmol/L (98-107); CHOLESTEROL 158 mg/dL (<200); CREATININE 0.99 mg/dL (0.70-1.30); HDL CHOLESTEROL 48 mg/dl (40-60); LDL CHOLESTEROL 97 mg/dL (9-159); SGOT/AST 12 IU/L (3-35); SGPT/ALT 28 U/L (12-78); SODIUM 140 mmol/L (136-145); TOTAL PROTEIN 6.8 gm/dL (6.4-8.2); TRIGLYCERIDES 67 mg/dl (<150); VLDL CHOLESTEROL 13 mg/dL (6-40)
[2020-09-07 06:49] LABS: THYROID STIM HORMONE (HS) 0.761 uIU/ml (0.358-4.75)
[2020-09-08] MEDS ORDERED: LOSARTAN POTASS50 M1 PO (04:47)
[2020-09-08] MEDS ORDERED: KAPSPARGO SPRIN50 MG PO (04:48)
[2020-09-08] MEDS ORDERED: OMEPRAZOLE40 MG PO (04:48)
[2020-09-08] MEDS ORDERED: PRAVASTATIN SOD10 MG PO (04:49)
[2020-09-08] MEDS ORDERED: TRAZODONE100 MG PO (04:50)
[2020-09-08] MEDS ORDERED: KEPPRA500 MG PO (04:52)
[2020-09-08 05:49] LABS: BUN 12 mg/dl (7-24); CHLORIDE 103 mmol/L (98-107); POTASSIUM 3.9 mmol/L (3.5-5.1); SODIUM 136 mmol/L (136-145); TROPONIN I 0.024 ng/ml (<0.045)
[2020-09-08 06:17] LABS: BASO # 0.1 10*3/uL (0.0-0.1); BASO % 0.6 % (0.0-1.0); EOS # 0.2 10*3/uL (0.0-0.4); EOS % 1.9 % (1.0-4.0); HEMATOCRIT 40.8 % (42.0-52.0); LYMPH # 1.9 10*3/uL (1.3-4.4); LYMPH % 17.2 % (27.0-41.0); MEAN CELL VOLUME 90.1 fl (80.0-94.0); MEAN CORPUSCULAR HGB 29.8 pg (27.0-31.0); MEAN CORPUSCULAR HGB CONC 33.1 g/dl (33.0-37.0); MEAN PLATELET VOLUME 10.8 fl (9.6-12.3); MONO # 1.3 10*3/uL (0.1-1.0); MONO % 11.6 % (3.0-9.0); NEUT # 7.3 10*3/uL (2.3-7.9); NEUT % 67.8 % (47.0-73.0); PLATELET COUNT AUTOMATED 211 10*3/uL (130-400); RED BLOOD COUNT 4.53 10*6/uL (4.50-5.90); RED CELL DISTRI WIDTH 13.2 % (0-14.5); WHITE BLOOD COUNT 10.8 10*3/uL (4.8-10.8)
[2020-09-08 16:12] VITALS: BP 139/57
[2020-09-08 18:00] VITALS: BP 148/71
[2020-09-08 20:00] VITALS: BP 156/78
[2020-09-09] VITALS: BP 157/63
[2020-09-09 07:05] LABS: BASO # 0.1 10*3/uL (0.0-0.1); BASO % 0.8 % (0.0-1.0); EOS # 0.3 10*3/uL (0.0-0.4); EOS % 2.9 % (1.0-4.0); HEMATOCRIT 43.2 % (42.0-52.0); LYMPH # 1.8 10*3/uL (1.3-4.4); LYMPH % 19.1 % (27.0-41.0); MEAN CELL VOLUME 90.9 fl (80.0-94.0); MEAN CORPUSCULAR HGB 29.7 pg (27.0-31.0); MEAN CORPUSCULAR HGB CONC 32.6 g/dl (33.0-37.0); MEAN PLATELET VOLUME 10.6 fl (9.6-12.3); MONO # 1.2 10*3/uL (0.1-1.0); MONO % 12.2 % (3.0-9.0); NEUT # 6.1 10*3/uL (2.3-7.9); NEUT % 63.5 % (47.0-73.0); PLATELET COUNT AUTOMATED 223 10*3/uL (130-400); RED BLOOD COUNT 4.75 10*6/uL (4.50-5.90); RED CELL DISTRI WIDTH 13.3 % (0-14.5); WHITE BLOOD COUNT 9.6 10*3/uL (4.8-10.8)
[2020-09-09 07:23] LABS: BUN 9 mg/dl (7-24); CHLORIDE 108 mmol/L (98-107); POTASSIUM 3.9 mmol/L (3.5-5.1); SODIUM 139 mmol/L (136-145)
[2020-09-09 08:00] VITALS: BP 160/68
[2020-09-09 12:00] VITALS: BP 155/56
[2020-09-09] MEDS ORDERED: ASPIRIN ADULT L81 M2 PO (15:37)
[2020-09-09 16:00] VITALS: BP 150/52
== END 2020-09-09 18:49 | disposition other institution (70) ==
LOC: ED 00:12 → EDHOLD 03:21 → 5E 09-08 17:24
PROVIDERS: Emergency Medicine; Internal Medicine; Student in an Organized Health Care Education/Training Program; ADMIT Family Medicine; ATTEND Family Medicine
DX: R07.89 Other chest pain (principal); D72.821 Monocytosis (symptomatic); D72.829 Elevated white blood cell count, unspecified; D64.9 Anemia, unspecified; E44.1 Mild protein-calorie malnutrition; E66.01 Morbid (severe) obesity due to excess calories; I10 Essential (primary) hypertension; K21.9 Gastro-esophageal reflux disease without esophagitis; G47.00 Insomnia, unspecified; E78.5 Hyperlipidemia, unspecified; E53.8 Deficiency of other specified B group vitamins; E55.9 Vitamin D deficiency, unspecified; G40.A09 Absence epileptic syndrome, not intractable, without status epilepticus; M79.2 Neuralgia and neuritis, unspecified; R73.9 Hyperglycemia, unspecified; D72.10 Eosinophilia, unspecified; J18.9 Pneumonia, unspecified organism; I25.10 Atherosclerotic heart disease of native coronary artery without angina pectoris; Z20.828 Contact with and (suspected) exposure to other viral communicable diseases; Z87.891 Personal history of nicotine dependence; Z95.5 Presence of coronary angioplasty implant and graft; Z98.890 Other specified postprocedural states

== ENCOUNTER 2021-01-26 16:13 | Inpatient (IN) | payer MEDICARE ==
[2021-01-26] VITALS (7 sets, daily range): BP systolic 119–160; BP diastolic 61–78
[~2021-01-26] VITALS: Ht 170.1 cm; Wt 120.2 kg
[~2021-01-26 16:13] MED LIST changes: +KAPSPARGO SPRIN50 MG PO; +KEPPRA500 MG PO; +LOSARTAN POTASS50 M1 PO; +OMEPRAZOLE40 MG PO; +PRAVASTATIN SOD10 MG PO; +TRAZODONE100 MG PO
[2021-01-26] MEDS ORDERED: PEPCID20 MG PO (16:43)
[2021-01-26] MEDS ORDERED: NITROSTAT0.4 MG SL (16:44)
[2021-01-26 17:09] LABS: HEMATOCRIT 39.4 % (42.0-52.0); MEAN CELL VOLUME 95.2 fl (80.0-94.0); MEAN CORPUSCULAR HGB 31.2 pg (27.0-31.0); MEAN CORPUSCULAR HGB CONC 32.7 g/dl (33.0-37.0); MEAN PLATELET VOLUME 10.4 fl (9.6-12.3); PLATELET COUNT AUTOMATED 199 10*3/uL (130-400); RED BLOOD COUNT 4.14 10*6/uL (4.50-5.90); RED CELL DISTRI WIDTH 13.8 % (0-14.5); WHITE BLOOD COUNT 23.6 10*3/uL (4.8-10.8)
[2021-01-26 17:27] LABS: ALBUMIN 2.8 gm/dl (3.1-4.5); ALKALINE PHOSPHATASE 99 U/L (45-117); BUN 11 mg/dl (7-24); CHLORIDE 103 mmol/L (98-107); CREATININE 0.98 mg/dL (0.70-1.30); POTASSIUM 4.3 mmol/L (3.5-5.1); SGOT/AST 23 IU/L (3-35); SGPT/ALT 40 U/L (12-78); SODIUM 130 mmol/L (136-145); TOTAL PROTEIN 7.3 gm/dL (6.4-8.2)
[2021-01-26 17:28] LABS: TROPONIN I < 0.015 ng/ml (<0.045)
[2021-01-26 17:33] LABS: BASOPHILS 1 % (0-1); PLATELET SUFFICIENCY NORMAL (NORMAL); TOTAL CELLS COUNTED 100 #CELLS
[2021-01-26 18:09] LABS: BILIRUBIN Negative (Negative); BLOOD Trace-Lysed (Negative); CLARITY Cloudy (Clear); COLOR Dark Yellow (Yellow); GLUCOSE Trace (Negative); KETONE Trace (Negative); LEUKO ESTERASE 2+ (Negative); NITRITE Negative (Negative); PH 7.5 (4.5-8.0); SPECIFIC GRAVITY >= 1.030 (1.001-1.030)
[2021-01-26 18:23] LABS: BACTERIA 3+; WBC 51-100 wbc/hpf (0-5)
[2021-01-27] VITALS (7 sets, daily range): BP systolic 108–166; BP diastolic 57–95
[2021-01-27] MEDS ORDERED: LOPRESSOR25 MG PO (01:38)
[2021-01-27] MEDS ORDERED: TYLOPHEN500 M2 PO (01:38)
[2021-01-27] MEDS ORDERED: MILK OF MA400 MG/5 M PO (01:40)
[2021-01-27] MEDS ORDERED: MYLANTA MAXIMU355 M1 PO (01:40)
[2021-01-27] MEDS ORDERED: NYSTATIN OINTME30 GM T (01:42)
[2021-01-27 05:32] LABS: ALBUMIN 2.6 gm/dl (3.1-4.5); BUN 10 mg/dl (7-24); CHLORIDE 104 mmol/L (98-107); CHOLESTEROL 121 mg/dL (<200); CREATININE 0.92 mg/dL (0.70-1.30); POTASSIUM 4.1 mmol/L (3.5-5.1); SGOT/AST 26 IU/L (3-35); SGPT/ALT 32 U/L (12-78); SODIUM 132 mmol/L (136-145); TOTAL PROTEIN 6.8 gm/dL (6.4-8.2); TRIGLYCERIDES 102 mg/dl (<150)
[2021-01-27 05:33] LABS: ALKALINE PHOSPHATASE 90 U/L (45-117); LDL CHOLESTEROL 54 mg/dL (9-159)
[2021-01-27 06:43] LABS: HEMATOCRIT 38.6 % (42.0-52.0); MEAN CELL VOLUME 96.3 fl (80.0-94.0); MEAN CORPUSCULAR HGB 31.2 pg (27.0-31.0); MEAN CORPUSCULAR HGB CONC 32.4 g/dl (33.0-37.0); MEAN PLATELET VOLUME 11.1 fl (9.6-12.3); PLATELET COUNT AUTOMATED 179 10*3/uL (130-400); RED BLOOD COUNT 4.01 10*6/uL (4.50-5.90); RED CELL DISTRI WIDTH 14.1 % (0-14.5); WHITE BLOOD COUNT 25.6 10*3/uL (4.8-10.8)
[2021-01-27 06:52] LABS: VITAMIN D, 25-HYDROXY 26.9 ng/mL (30-100)
[2021-01-27 07:55] LABS: PLATELET SUFFICIENCY NORMAL (NORMAL); POLYCHROMASIA SLIGHT; TOTAL CELLS COUNTED 100 #CELLS
[2021-01-28] VITALS: BP 108/63
[2021-01-28 04:00] VITALS: BP 110/58
[2021-01-28 05:18] LABS: BUN 13 mg/dl (7-24); CHLORIDE 106 mmol/L (98-107); CREATININE 0.83 mg/dL (0.70-1.30); POTASSIUM 3.4 mmol/L (3.5-5.1); SODIUM 136 mmol/L (136-145)
[2021-01-28 06:16] LABS: HEMATOCRIT 39.8 % (42.0-52.0); MEAN CELL VOLUME 96.4 fl (80.0-94.0); MEAN CORPUSCULAR HGB 31.2 pg (27.0-31.0); MEAN CORPUSCULAR HGB CONC 32.4 g/dl (33.0-37.0); MEAN PLATELET VOLUME 10.9 fl (9.6-12.3); PLATELET COUNT AUTOMATED 158 10*3/uL (130-400); RED BLOOD COUNT 4.13 10*6/uL (4.50-5.90); RED CELL DISTRI WIDTH 14.3 % (0-14.5); WHITE BLOOD COUNT 14.1 10*3/uL (4.8-10.8)
[2021-01-28 06:59] LABS: BASOPHILS 1 % (0-1); TOTAL CELLS COUNTED 100 #CELLS
[2021-01-28 07:00] LABS: BURR CELLS FEW; PLATELET SUFFICIENCY NORMAL (NORMAL); POLYCHROMASIA SLIGHT
[2021-01-28 08:00] VITALS: BP 139/70
[2021-01-28 12:00] VITALS: BP 126/73
[2021-01-28] MEDS ORDERED: CEPHALEXIN500 M1 PO (12:16)
== END 2021-01-28 15:13 | DRG 871 ==
LOC: ED 16:13 → EDHOLD 20:00 → ICCU 20:00
PROVIDERS: Hospitalist; Internal Medicine; Student in an Organized Health Care Education/Training Program; ADMIT Emergency Medicine; ATTEND Emergency Medicine
DX: A41.9 Sepsis, unspecified organism (principal); J96.01 Acute respiratory failure with hypoxia; E43 Unspecified severe protein-calorie malnutrition; N39.0 Urinary tract infection, site not specified; E87.1 Hypo-osmolality and hyponatremia; Z68.41 Body mass index [BMI] 40.0-44.9, adult; R65.20 Severe sepsis without septic shock; E53.8 Deficiency of other specified B group vitamins; D53.9 Nutritional anemia, unspecified; E66.01 Morbid (severe) obesity due to excess calories; E55.9 Vitamin D deficiency, unspecified; K21.9 Gastro-esophageal reflux disease without esophagitis; E78.5 Hyperlipidemia, unspecified; R07.9 Chest pain, unspecified; F03.90 Unspecified dementia, unspecified severity, without behavioral disturbance, psychotic disturbance, mood disturbance, and anxiety; I10 Essential (primary) hypertension; E11.65 Type 2 diabetes mellitus with hyperglycemia; B96.4 Proteus (mirabilis) (morganii) as the cause of diseases classified elsewhere; G43.909 Migraine, unspecified, not intractable, without status migrainosus; G40.A09 Absence epileptic syndrome, not intractable, without status epilepticus; Z95.810 Presence of automatic (implantable) cardiac defibrillator; Z87.891 Personal history of nicotine dependence; Z83.3 Family history of diabetes mellitus; Z82.49 Family history of ischemic heart disease and other diseases of the circulatory system; Z80.42 Family history of malignant neoplasm of prostate; Z79.899 Other long term (current) drug therapy; Z79.82 Long term (current) use of aspirin

== ENCOUNTER 2023-04-08 17:52 | Emergency (ER) | payer MEDICARE ==
[~2023-04-08] VITALS: Ht 177.8 cm; Wt 99.8 kg
[~2023-04-08 17:52] MED LIST changes: +CEPHALEXIN500 M1 PO; +LOPRESSOR25 MG PO; +MILK OF MA400 MG/5 M PO; +MYLANTA MAXIMU355 M1 PO; +NITROSTAT0.4 MG SL; +NYSTATIN OINTME30 GM T; +PEPCID20 MG PO; +TYLOPHEN500 M2 PO
== END 2023-04-08 20:43 ==
LOC: ED 17:52
DX: F91.9 Conduct disorder, unspecified (principal); I25.2 Old myocardial infarction; I10 Essential (primary) hypertension; I25.10 Atherosclerotic heart disease of native coronary artery without angina pectoris; Z90.89 Acquired absence of other organs; Z98.890 Other specified postprocedural states; Z87.891 Personal history of nicotine dependence

== ENCOUNTER 2023-09-22 16:45 | Emergency (ER) | payer MEDICARE ==
[~2023-09-22] VITALS: Ht 165.1 cm; Wt 104.3 kg
[2023-09-22 17:27] LABS: BASO # 0.1 10*3/uL (0.0-0.1); BASO % 0.7 % (0.0-1.0); EOS # 0.2 10*3/uL (0.0-0.4); EOS % 2.3 % (1.0-4.0); HEMATOCRIT 32.7 % (42.0-52.0); LYMPH # 1.4 10*3/uL (1.3-4.4); LYMPH % 13.9 % (27.0-41.0); MEAN CELL VOLUME 86.7 fl (80.0-94.0); MEAN CORPUSCULAR HGB 25.2 pg (27.0-31.0); MEAN CORPUSCULAR HGB CONC 29.1 g/dl (33.0-37.0); MEAN PLATELET VOLUME 9.9 fl (9.6-12.3); MONO # 1.3 10*3/uL (0.1-1.0); MONO % 12.4 % (3.0-9.0); NEUT # 7.1 10*3/uL (2.3-7.9); NEUT % 68.6 % (47.0-73.0); PLATELET COUNT AUTOMATED 239 10*3/uL (130-400); RED BLOOD COUNT 3.77 10*6/uL (4.50-5.90); RED CELL DISTRI WIDTH 17.2 % (0-14.5); WHITE BLOOD COUNT 10.4 10*3/uL (4.8-10.8)
[2023-09-22 17:38] LABS: ACT PARTIAL THROMBO TIME 35.4 SECONDS (20.0-32.1)
[2023-09-22 17:50] LABS: ALKALINE PHOSPHATASE 113 U/L (46-116); BUN 14 mg/dl (9-23); CHLORIDE 103 mmol/L (98-107); LIPASE 46 U/L (12-53); POTASSIUM 4.3 mmol/L (3.4-5.1); SGPT/ALT 20 U/L (5-49); TOTAL PROTEIN 7.2 gm/dL (6.0-8.0)
== END 2023-09-22 20:52 | disposition home or self-care (01) ==
LOC: ED 16:45
PROVIDERS: Emergency Medicine
DX: S00.93XA Contusion of unspecified part of head, initial encounter (principal); R79.82 Elevated C-reactive protein (CRP); E44.1 Mild protein-calorie malnutrition; Z68.1 Body mass index [BMI] 19.9 or less, adult; D64.9 Anemia, unspecified; I25.2 Old myocardial infarction; I10 Essential (primary) hypertension; I25.10 Atherosclerotic heart disease of native coronary artery without angina pectoris; Z98.890 Other specified postprocedural states; Z90.89 Acquired absence of other organs; Z87.891 Personal history of nicotine dependence; W01.0XXA Fall on same level from slipping, tripping and stumbling without subsequent striking against object, initial encounter; Y93.89 Activity, other specified; Y92.89 Other specified places as the place of occurrence of the external cause; Y99.8 Other external cause status

== ENCOUNTER 2024-01-21 12:52 | Emergency (ER) | payer MEDICARE, MEDICAID ==
[~2024-01-21] VITALS: Ht 170.1 cm; Wt 116.6 kg
[2024-01-21] MEDS ORDERED: SODIUM CHLORIDE 0.9% 1,000 ML IV ONE (13:00)
[2024-01-21] MEDS ORDERED: MORPHINE Sulfate 2 MG/ML SYR IV ONE (13:00)
[2024-01-21] MEDS ORDERED: Ondansetron Hydrochloride 4 MG/2 ML VIAL IV ONE (13:00)
[2024-01-21 13:12] LABS: HEMATOCRIT 29.5 % (42.0-52.0); MEAN CELL VOLUME 82.2 fl (80.0-94.0); MEAN CORPUSCULAR HGB 24.5 pg (27.0-31.0); MEAN CORPUSCULAR HGB CONC 29.8 g/dl (33.0-37.0); MEAN PLATELET VOLUME 9.3 fl (9.6-12.3); PLATELET COUNT AUTOMATED 281 10*3/uL (130-400); RED BLOOD COUNT 3.59 10*6/uL (4.50-5.90); RED CELL DISTRI WIDTH 18.3 % (0-14.5); WHITE BLOOD COUNT 13.2 10*3/uL (4.8-10.8)
[2024-01-21 13:19] LABS: MANUAL DIFF REFLEX YES
[2024-01-21 13:39] LABS: BASOPHILS 1 % (0-1); PLATELET SUFFICIENCY NORMAL (NORMAL); POLYCHROMASIA SLIGHT; TOTAL CELLS COUNTED 100 #CELLS
[2024-01-21 13:42] LABS: BUN 12 mg/dl (9-23); CHLORIDE 100 mmol/L (98-107); POTASSIUM 4.6 mmol/L (3.4-5.1)
[2024-01-21 14:39] LABS: BILIRUBIN Negative (Negative); BLOOD 1+ (Negative); CLARITY Turbid (Clear); COLOR Yellow (Yellow); GLUCOSE 3+ (Negative); KETONE Negative (Negative); LEUKO ESTERASE 2+ (Negative); NITRITE Negative (Negative); SPECIFIC GRAVITY >= 1.030 (1.001-1.030)
[2024-01-21 14:53] LABS: BACTERIA 2+; WBC TNTC wbc/hpf (0-5)
[2024-01-21] MEDS ORDERED: Ceftriaxone Sodium 1 GM/10 ML SYR IV ONE (15:00)
[2024-01-21] MEDS ORDERED: METRONIDAZOLE 500 MG TAB PO ONE (16:10)
[2024-01-21] MEDS ORDERED: CIPRO500 MG PO (16:27)
[2024-01-21] MEDS ORDERED: METRONIDAZOLE500 M1 PO (16:27)
== END 2024-01-21 19:01 | disposition home or self-care (01) ==
LOC: ED 12:52
PROVIDERS: Emergency Medicine
DX: K52.9 Noninfective gastroenteritis and colitis, unspecified (principal); N39.0 Urinary tract infection, site not specified; I10 Essential (primary) hypertension; E78.5 Hyperlipidemia, unspecified; K21.9 Gastro-esophageal reflux disease without esophagitis; I25.2 Old myocardial infarction; I25.10 Atherosclerotic heart disease of native coronary artery without angina pectoris; Z90.89 Acquired absence of other organs; Z98.890 Other specified postprocedural states; Z87.891 Personal history of nicotine dependence